=== PATIENT | male | born 1955 | race Caucasian/White ===

== ENCOUNTER 2021-05-06 05:28 | Day surgery (SDC) | payer MEDICARE, BC ==
[~2021-05-06] VITALS: Ht 182.9 cm; Wt 90.7 kg
[2021-05-06] VITALS (16 sets, daily range): BP systolic 118–147; BP diastolic 48–93
[~2021-05-06 05:28] MED LIST: LAXATIVE; MULT-1085 PO; RIZA10TA98; TOPI25TA49 PO; [UNRECOGNIZED DRUG - OTHER]; ringers solution, lacted 1,000 ML IV SCH
[2021-05-06] MEDS ORDERED: cefazolin/dext.iso 2gm/50ml IV ONE (05:30)
[2021-05-06] MEDS ORDERED: famotidine 20mg tablet PO ONE (05:30)
[2021-05-06] MEDS ORDERED: LIDOcaine 1% (10mg/ml) 2ml vial ONE (05:55)
[2021-05-06 07:11] LABS: BASOPHILS # (AUTO) 0.1 X10'3 (0-0.2); BASOPHILS % (AUTO) 0.6 % (0-1); EOSINOPHILS # (AUTO) 0.3 X10'3 (0-0.9); EOSINOPHILS % (AUTO) 3.8 % (0-6); HEMATOCRIT 44.3 % (42.0-52.0); HEMOGLOBIN 14.8 g/dl (14.0-17.9); LYMPHOCYTES # (AUTO) 2.9 X10'3 (1.1-4.8); MEAN CORPUSCULAR HEMOGLOBIN 30.1 PG (27.0-31.0); MEAN CORPUSCULAR HGB CONC 33.5 g/dL (33.0-36.5); MONOCYTES # (AUTO) 0.7 X10'3 (0-0.9); NEUTROPHILS # (AUTO) 4.6 X10'3 (1.8-7.7); NEUTROPHILS % (AUTO) 53.6 % (42-75); PLATELET COUNT 243 X10'3 (140-440); RED BLOOD COUNT 4.92 X10'6 (4.70-6.10); RED CELL DISTRIBUTION WIDTH 14.1 % (11.5-14.5); WHITE BLOOD COUNT 8.6 X10'3 (4.5-11.0)
[2021-05-06] MEDS ORDERED: FENTANYL CITRATE/PF 50 MCG/1 ML VIAL ONE (07:16)
[2021-05-06] MEDS ORDERED: MIDAZolam 1 MG/ML 5ML VIAL ONE (07:17)
[2021-05-06] MEDS ORDERED: ROPIVAcaine 0.5% (5mg/ml) 30ml vial ONE (07:19)
[2021-05-06] MEDS ORDERED: dexamethasone sod phosphate 4mg/ml inj. ONE (07:19)
[2021-05-06] MEDS ORDERED: LIDOcaine 2% (20mg/ml) 5ml vial ONE (07:39)
[2021-05-06] MEDS ORDERED: propofol inj 20 ML IV ONE (07:39)
[2021-05-06 07:41] LABS: ALANINE AMINOTRANSFERASE 58 U/L (12-78); ALBUMIN 3.7 G/DL (3.4-5.0); ALBUMIN/GLOBULIN RATIO 1.1 (1.1-1.5); ALKALINE PHOSPHATASE 73 IU/L (46-116); ANION GAP 12 (8-16); ASPARTATE AMINO TRANSFERASE 24 U/L (10-37); BILIRUBIN,TOTAL 0.6 MG/DL (0.1-1.0); BLOOD UREA NITROGEN 23 MG/DL (7-18); BUN/CREATININE RATIO 20.4 (5.4-32.0); CHLORIDE 108 MMOL/L (99-107); CREATININE 1.13 MG/DL (0.60-1.10); GLUCOSE 109 MG/DL (70-104); POTASSIUM 4.4 MMOL/L (3.5-5.1); SODIUM 145 MMOL/L (135-145); TOTAL CARBON DIOXIDE 25.2 MMOL/L (24-32); eGFR 65 ML/MIN
[2021-05-06] MEDS ORDERED: meperidine/PF 25mg/ml syringe IV PRN ×3 (08:25)
[2021-05-06] MEDS ORDERED: proCHLORperazine 10 MG/2 ml inj IV PRN (08:25)
[2021-05-06] MEDS ORDERED: morphine 4 MG/ML inj SYRINge IV PRN (08:25)
[2021-05-06] MEDS ORDERED: ROPIVAcaine 0.2% (10 MG/5 ML) BOLUS INJECTION INTERSCALE PRN (08:25)
[2021-05-06] MEDS ORDERED: ringers solution, lacted 1,000 ML IV SCH (08:25)
[2021-05-06] MEDS ORDERED: ondansetron/PF 4mg/2ml inj IV PRN (08:25)
[2021-05-06] MEDS ORDERED: morphine 2 MG/ML inj. syringe IV PRN (08:25)
[2021-05-06] MEDS ORDERED: ROPIVAcaine 0.2%/PF PUMP/bolus 545 ML INTERSCALE SCH ×2 (08:25→08:32)
[2021-05-06] MEDS ORDERED: ePHEDrine 50MG/ML INJ. ONE (08:39)
--- NOTE | 2021-05-06 09:41 | NUR ---
Received from OR via [facility], accompanied by Anesthesiologist DR RAMIREZ and report given by Anesthesiologist AND BURGL[employer] ALARM INSTALLER. PT VERY DROWSY, NO S/S OF DISTRESS/DISCOMFORT. RIGHT SHOULDER W/MEDIPORE TAPE COVERING INCISION/DRSG CDI. POWDER PACK AND IMMOBILIZER IN PLACE. Addendum: 05/06/21 at 1007 by Bhavna Eaton RN Amended: Links added.
[2021-05-06] MEDS ORDERED: HYDROcodone/acetaminophen 10/325mg tab PO PRN (10:00)
--- NOTE | 2021-05-06 12:21 | NUR ---
PT TOLERATING 7-UP AND CRACKERS, PT STABLE W/AMBULATION, VOIDED. D/C INSTRUCTIONS GIVEN AND GONE OVER W/PT AND PTS WHO VERBALIZED UNDERSTANDING. PT D/CD TO HOME VIA W/C TO PRIVATE VEHICLE W/O INCIDENT. Addendum: 05/06/21 at 1254 by Bhavna Eaton RN Amended: Links added.
== END 2021-05-06 12:21 | disposition home or self-care (01) ==
LOC: PAS 05:28
PROVIDERS: ATTEND Orthopaedic Surgery
DX: S46.011A Strain of muscle(s) and tendon(s) of the rotator cuff of right shoulder, initial encounter (principal); M19.011 Primary osteoarthritis, right shoulder; M65.811 Other synovitis and tenosynovitis, right shoulder; M75.51 Bursitis of right shoulder; M75.41 Impingement syndrome of right shoulder; G89.18 Other acute postprocedural pain; G43.909 Migraine, unspecified, not intractable, without status migrainosus; Z87.442 Personal history of urinary calculi; Z98.890 Other specified postprocedural states; Z79.899 Other long term (current) drug therapy; Z88.1 Allergy status to other antibiotic agents; X58.XXXA Exposure to other specified factors, initial encounter; Y92.89 Other specified places as the place of occurrence of the external cause; Y93.89 Activity, other specified; Y99.8 Other external cause status
CPT/HCPCS: 29824; 29826; 29827; 36415; 64416; 76942; 80053; 82948; 85025; C1713; J1100; J2250; J2704; J2795; J3010; J3490; J7120; Z7506; Z7508; Z7512; A4618; A6253; A6449; A7000